=== PATIENT | male | born 1995 | race Hispanic/Latino ===

== ENCOUNTER 2017-04-25 12:18 | Emergency (ER) | payer BC ==
[2017-04-25 12:53] LABS: #Basophils 0.1 thou/uL (0.0-0.2); #Lymphocytes 2.6 thou/uL (1.20-3.40); #Monocytes 0.4 thou/uL (0.11-0.59); #Neutrophils 6.1 thou/uL (1.40-6.50); %Basophils 0.5 % (0.0-1.0); %Eosinophils 0.4 % (0.0-10.0); %Lymphocytes 28.6 % (21.0-51.0); %Monocytes 3.9 % (0.0-10.0); %Neutrophils 66.5 % (42.0-75.0); Mean Corpuscular HGB CONC 33.5 g/dL (32.0-36.0); Mean Corpuscular Hemoglobin 28.3 pg (27.0-31.0); Mean Corpuscular Volume 84.4 fl (80.0-94.0); Platelet Count 294 thou/uL (130-400); RBC Distribution Width 12.6 % (11.5-14.5); Red Blood Cell (RBC) Count 5.29 mill/uL (4.70-6.10); White Blood Cell (WBC) Count 9.2 thou/uL (4.8-10.8)
[2017-04-25 13:15] LABS: ALT (SGPT) 37 U/L (8-55); AST (SGOT) 42 U/L (5-34); Albumin 4.2 g/dL (3.5-5.0); Alcohol 305 mg/dL (Less than 10); Alkaline Phosphatase 102 U/L (40-150); Anion Gap 17 mmol/L (10-20); BUN (Urea Nitrogen) Less than 4 mg/dL (8.9-20.6); Bilirubin, Total 0.4 mg/dL (0.2-1.2); Calc. Creatinine Clearance 0 mL/min (70-130); Calcium 8.8 mg/dL (7.8-10.44); Carbon Dioxide 19 mmol/L (22-29); Chloride 104 mmol/L (98-107); Estimated GFR-MDRD Greater than 90; Globulin 3.4 g/dL (2.4-3.5); Glucose 129 mg/dL (70-105); Potassium 3.2 mmol/L (3.5-5.1); Protein, Total 7.6 g/dL (6.0-8.3); Sodium 137 mmol/L (136-145)
[2017-04-25 13:15] LABS: Acetaminophen Less than 6.0 mcg/mL (10.0-30.0); Alcohol 304 mg/dL (Less than 10); Salicylate Less than 8.0 mg/dL (15.0-30.0)
--- NOTE | 2017-04-25 14:19 | RAD ---
RIGHT ELBOW 2 VIEWS: Date: 04/25/17 HISTORY: Elbow pain. FINDINGS: There are no signs of fracture, dislocation, or joint effusion. IMPRESSION: No evidence of acute injury. POS: [facility]
[2017-04-25 15:20] LABS: Medtox Reader # READER 1
[2017-04-25 15:21] LABS: Amphetamine Not Detected (NotDetected); Barbiturates Screen Not Detected (NotDetected); Benzodiazepine Screen Not Detected (NotDetected); Cocaine Metabolite Screen Detected (NotDetected); Medtox Control Line Valid? VALID (VALID); Methadone Not Detected (NotDetected); Methamphetamine Detected (NotDetected); Opiate Screen Not Detected (NotDetected); Oxycodone Screen Not Detected (NotDetected); Phencyclidine (PCP) Not Detected (NotDetected); THC/Cannabinoid Screen Not Detected (NotDetected); Tricyclic Screen Not Detected (NotDetected)
--- NOTE | 2017-05-02 13:12 | EKG ---
Test Reason : Blood Pressure : / mmHG Vent. Rate : 100 BPM Atrial Rate : 100 BPM P-R Int : 154 ms QRS Dur : 120 ms QT Int : 392 ms P-R-T Axes : 010 037 026 degrees QTc Int : 505 ms Normal sinus rhythm Inferior infarct , age undetermined Abnormal ECG Confirmed by ASYA VELAZQUEZ ([id number]), editor newspaper ROSENDO SHAIKH ([id number]) on 05/02/2017 1:11:53 PM Referred By: Confirmed By:ASYA VELAZQUEZ
== END 2017-04-25 15:46 | disposition home or self-care (01) ==
LOC: ERS 12:18
DX: F10.129 Alcohol abuse with intoxication, unspecified (principal); R04.0 Epistaxis; F90.9 Attention-deficit hyperactivity disorder, unspecified type; Y90.8 Blood alcohol level of 240 mg/100 ml or more
CPT/HCPCS: 80053; 80306; 80307; 84443; 85025; 93005; 96360; 96361